=== PATIENT | male | born 2000 | race Caucasian/White ===

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

== ENCOUNTER 2022-04-06 18:19 | Emergency (ER) | payer SELFPAY ==
[2022-04-06] MEDS ORDERED: DIAZEPAM 10 MG/2 ML INJ SYRINGE ONE (18:39)
[2022-04-06] MEDS ORDERED: HALOPERIDOL LACT 5 MG/ML INJ ONE (18:46)
[2022-04-06 19:07] LABS: Absolute Lymphocytes (CBC) 2.2 K/uL (0.7-4.9); Hematocrit 42.8 % (39.6-49.0); Lymphocytes % 27.6 % (15.3-44.8); MCV 88.8 fL (80-100); MPV 7.3 fL (7.6-11.3); RBC Red Blood Cell Count 4.82 M/uL (4.33-5.43)
[2022-04-06 19:09] LABS: Protime INR 0.99
[2022-04-06 19:31] LABS: ALT/SGPT 35 U/L (12-78); AST/SGOT 35 U/L (15-37); Albumin 4.1 g/dL (3.4-5.0); Alkaline Phosphatase 91 U/L (45-117); BUN Blood Urea Nitrogen 8 mg/dL (7-18); Bicarbonate 25 mmol/L (21-32); Bilirubin Direct 0.1 mg/dL (0-0.2); Bilirubin Total 0.4 mg/dL (0.2-1.0); Glomerular Filtration Rate 85 ml/min (=/>90); Glucose Level 113 mg/dL (74-106); Potassium 3.5 mmol/L (3.5-5.1); Protein, Total 7.3 g/dL (6.4-8.2); Sodium Level 142 mmol/L (136-145)
[2022-04-06 20:02] LABS: Urine Blood Trace-intact (Negative); Urine Glucose Negative (Negative); Urine Protein Negative (Negative); Urine pH 6.5 (5.0-7.0)
[2022-04-06 20:30] LABS: Barbiturates NEGATIVE (NEGATIVE); Benzodiazepines NEGATIVE (NEGATIVE); Cocaine NEGATIVE (NEGATIVE); METHAMPHETAM POSITIVE (NEGATIVE); Methadone NEGATIVE (NEGATIVE); Opiates NEGATIVE (NEGATIVE); Phencyclidine NEGATIVE (NEGATIVE); THC Cannibis NEGATIVE (NEGATIVE)
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
--- NOTE | 2022-04-06 22:54 | EDPHYS ---
Physician Documentation [facility] Name: Guillermo Foy Age: 21 yrs Sex: Male : 2000 Arrival Date: 04/06/2022 Time: 18:29 Bed 3 Private MD: ED Physician Nic Baxter HPI: 04/06 18:39 This 21 yrs old Male presents to ER via Unassigned with complaints of ETOH Abuse, kdr Altered Mental Status. 18:39 The patient presents with agitation, confusion. Onset: The symptoms/episode kdr began/occurred just prior to arrival. Possible causes: drug use, alcohol, has had a recent alcohol binge. Associated signs and symptoms: Pertinent positives: agitation, combativeness, confusion. Current symptoms: In the emergency department the patient's symptoms are unchanged from the initial presentation. Patient's baseline:. It is unknown whether or not the patient has had similar symptoms in the past. It is unknown whether or not the patient has recently seen a physician. Historical: - Allergies: 18:42 No Known Allergies; ll1 - PMHx: 18:42 Unable to Obtain; ll1 - PSHx: 18:42 Unable to Obtain; ll1 - Immunization history:: Adult Immunizations up to date. - Social history:: Smoking status: unknown. ROS: 18:39 Constitutional: Negative for fever, chills, and weight loss, Eyes: Negative for injury, kdr pain, redness, and discharge, Neck: Negative for injury, pain, and swelling, Cardiovascular: Negative for chest pain, palpitations, and edema, Respiratory: Negative for shortness of breath, cough, wheezing, and pleuritic chest pain, Abdomen/GI: Negative for abdominal pain, nausea, vomiting, diarrhea, and constipation, Back: Negative for injury and pain, Skin: Negative for injury, rash, and discoloration, Neuro: Negative for headache, weakness, numbness, tingling, and seizure activity. Allergy/Immunology: Negative for hives, rash, and allergies, Endocrine: Negative for neck swelling, polydipsia, polyuria, polyphagia, and marked weight changes, Hematologic/Lymphatic: Negative for swollen nodes, abnormal bleeding, and unusual bruising. 18:39 Psych: Positive for alcohol dependence, Agitation due to possible ETOH intoxication. Exam: 18:41 Constitutional: This is a well developed, well nourished patient who is awake in acute kdr distress. Head/Face: Normocephalic, atraumatic. Eyes: Pupils equal round and reactive to light, extra-ocular motions intact. Lids and lashes normal. Conjunctiva and sclera are non-icteric and not injected. Cornea within normal limits. Periorbital areas with no swelling, redness, or edema. Neck: Trachea midline, no thyromegaly or masses palpated, and no cervical lymphadenopathy. Supple, full range of motion without nuchal rigidity, or vertebral point tenderness. No Meningismus. Chest/axilla: Normal chest wall appearance and motion. Nontender with no deformity. No lesions are appreciated. Cardiovascular: Regular rate and rhythm with a normal S1 and S2. No gallops, murmurs, or rubs. Normal PMI, no JVD. No pulse deficits. Respiratory: Lungs have equal breath sounds bilaterally, clear to auscultation and percussion. No rales, rhonchi or wheezes noted. No increased work of breathing, no retractions or nasal flaring. Abdomen/GI: Soft, non-tender, with normal bowel sounds. No distension or tympany. No guarding or rebound. No evidence of tenderness throughout. Back: No spinal tenderness. No costovertebral tenderness. Full range of motion. Skin: Warm, dry with normal turgor. Normal color with no rashes, no lesions, and no evidence of cellulitis. 18:41 Psych: Behavior/mood is aggressive, uncooperative, delirious, Affect is animated, Oriented to person, Not oriented to person Vital Signs: 18:43 BP 142 / 87; Pulse 123; Resp 22; Temp 99.2; Pulse Ox 99% on R/A; Pain 0/10; ll1 18:50 Pulse 112; Resp 18; Pulse Ox 97% on R/A; ll1 19:03 BP 116 / 71; Pulse 93; Resp 17; Pulse Ox 96% on R/A; kr3 20:30 BP 112 / 62; Pulse 77; Resp 15; Pulse Ox 99% on R/A; jb4 MDM: 18:41 Data reviewed: vital signs, nurses notes, lab test result(s), radiologic studies. kdr Counseling: I had a detailed discussion with the patient and/or guardian regarding: the historical points, exam findings, and any diagnostic results supporting the discharge/admit diagnosis, lab results, radiology results. 19:17 Patient medically screened. [facility] 04/06 18:50 Order name: Acetaminophen; Complete Time: 19:33 [facility] 04/06 18:50 Order name: Basic Metabolic Panel; Complete Time: 19:33 [facility] 04/06 18:50 Order name: CBC with Diff; Complete Time: 19:27 [facility] 04/06 18:50 Order name: ETOH Level; Complete Time: 19:45 [facility] 04/06 18:50 Order name: Hepatic Function; Complete Time: 19:33 [facility] 04/06 18:50 Order name: PT-INR; Complete Time: 19:27 [facility] 04/06 18:50 Order name: Ptt, Activated; Complete Time: 19:27 [facility] 04/06 18:50 Order name: Salicylate; Complete Time: 19:30 [facility] 04/06 18:50 Order name: Urine Drug Screen; Complete Time: 20:46 [facility] 04/06 18:50 Order name: EKG; Complete Time: 18:50 [facility] 04/06 20:02 Order name: Urine Dipstick-Ancillary; Complete Time: 20:07 [facility] 04/06 18:50 Order name: EKG - Nurse/Tech; Complete Time: 20:02 [facility] 04/06 18:50 Order name: IV Saline Lock; Complete Time: 18:50 [facility] 04/06 18:50 Order name: Labs collected and sent; Complete Time: 18:50 [facility] 04/06 18:50 Order name: Urine Dipstick-Ancillary (obtain specimen); Complete Time: 20:02 [facility] Administered Medications: 18:35 Drug: Valium (diazepam) 5 mg Route: IVP; Site: left forearm; ll1 18:40 Drug: Valium (diazepam) 5 mg Route: IVP; Site: left forearm; ll1 18:40 Drug: HALdol (haloperidol) 5 mg Route: IVP; Site: left forearm; ll1 Disposition Summary: 04/06/22 22:53 Discharge Ordered Location: Home jm Condition: Stable jm Diagnosis - Alcohol abuse with intoxication jmm Followup: jmm - With: Private Physician - When: 2 - 3 days - Reason: Recheck today's complaints, Continuance of care, Re-evaluation by your physician Discharge Instructions: - Discharge Summary Sheet jm - Alcohol Intoxication jm Forms: - Medication Reconciliation Form jmm - Thank You Letter jmm - Antibiotic Education jmm - Prescription Opioid Use jmm Signatures: Dispatcher [employer] Nic Resendiz MD MD cha Rittger, Kevin, MD MD kdr Mickail, Joel, PA PA jmm Lewis, Lynsay, RN RN ll1
[2022-04-06 23:40] VITALS: TEMP 99.2
[2022-04-06 23:44] VITALS: BP 112/62; O2SAT 99
--- NOTE | 2022-04-09 08:02 | EKG ---
Test Date: 2022-04-06 Test Time: 18:52:14 Showplace Manager: CAREN MEASUREMENT RESULTS: Intervals: Rate: 96 [place]: 128 QRSD: 80 QT: 360 QTc: 454 [place]: P: 66 [place]: 128 QRS: 95 T: 56 INTERPRETIVE STATEMENTS: Normal sinus rhythm Rightward axis Borderline ECG Compared to ECG 04/10/2018 17:10:12 Right-axis deviation now present Sinus arrhythmia no longer present Electronically Signed On 04-09-22 07:56:01 CDT by Yang Woods
--- NOTE | 2022-04-09 12:49 | EKG ---
Test Date: 2022-04-06 Test Time: 19:37:50 Batch Freezer: SELAM MEASUREMENT RESULTS: Intervals: Rate: 82 NE: 130 QRSD: 80 QT: 378 QTc: 441 [place]: P: 65 NE: 130 QRS: 95 T: 58 INTERPRETIVE STATEMENTS: Normal sinus rhythm Rightward axis Borderline ECG Compared to ECG 04/06/2022 18:52:14 No significant changes Electronically Signed On 04-09-22 12:47:33 CDT by Paulo Wiggins
== END 2022-04-06 23:15 | disposition home or self-care (01) ==
LOC: ER 18:19
DX: F10.129 Alcohol abuse with intoxication, unspecified (principal)
CPT/HCPCS: 36415; 80048; 80076; 80307; 80320; 80329; 81003; 85025; 85610; 85730; 93005; 96374; 96375; 99285; J1630; J3360